=== PATIENT | female | born 1990 | race Caucasian/White ===

== ENCOUNTER 2016-07-07 17:48 | Inpatient (IN) | payer BC ==
--- OUTSIDE RECORDS SUMMARY | 2016-07-07 17:52 | XMS REPORT | Continuity of Care Document ---
:1990 Author Organization [facility] ([facility]) Address [address] [place] [address] Phone [phone] Care Team Providers Name Role Phone Provider, No-Primary Care Primary Care Provider Unavailable Source Comments This disclosure is being made pursuant to the Care Everywhere program, applicable federal and state laws, and may not contain all informaitonavailable regarding this patient.[facility] ([facility]) Active Allergies and Adverse Reactions Not on File Current Medications Not on file Active Problems Not on file Most Recent Encounters Date Type Specialty Providers Description 05/27/2016 Lab Requisition Pathology Lab Services, [facility] Dx: Neoplasm of uncertain behavior of skin Social History Tobacco Use Types Packs/Day Years Used Date Never Assessed Plan of Care Health Maintenance Due Date Last Done Comments Hepatitis B Vaccine (1 of 3 - Primary Series) 1990 HPV Vaccine (1 of 3 - Female/Unknown 3 Dose Series) 2000 Tdap Vaccine 2000 Cervical Cancer Screening 07/29/2007 Lipid Disorder Screening 07/29/2007 MMR Vaccine 07/29/2007 Td Vaccine 07/29/2007 Varicella Vaccine (1 of 2 - Adult - No Evidence of 07/29/2007 Immunity) Influenza Vaccine: Seasonal (#1) 10/11/2015 Results from Last 3 Months DERMATOPATHOLOGY EXAM (05/25/2016 12:48 PM) Component Value Range Case Report Surgical Pathology Case: [id number] Authorizing Provider:Lab Services, [facility] Collected: 05/25/2016 12:48 PM Pathologist: Lupe Ware MD Received:05/27/2016 12:48 PM Specimens: A) - Skin, other, specify, L BREAST B) - Skin, other, specify, L CLAVICULAR SKIN C) - Skin, other, specify, L LATERAL BREAST 4-5 O CLOCK REGION Diagnosis A.Skin, left breast, shave biopsy: Dysplastic compound nevus with moderate atypia. B.Skin, left clavicular, shave biopsy: Compound nevus. C.Skin, left lateral breast 4-5:00 region, shave biopsy: Compound nevus. I have personally reviewed this case and edited the report as necessary. Clinical Information Tissue source/site: A. Skin - shave - L breast. B. Skin - shave - L clavicular skin. C. Skin - shave - L lateral breast 4-5:00 region. Pertinent clinical history and findings: A. 0.3 cm dark macule.B. 0.5 cm brown papule. C. 0.5 cm pedunculated papule with dark center speck. Clinical differential diagnosis: A. Atypical nevus. B. Irritated nevus. C. Imitated acrochordon vs irritated nevus. Gross Description A.Received in formalin, in a container labeled Kamryn Reid, date of , and "L BREAST", is a 0.6 x 0.5 x 0.1 cm barragan shave biopsy.The specimen is inked, bisected and submitted entirelyin A1. D/gustavo B.Received in formalin, in a container labeled Kamryn Reid, date of , and "L CLAVICULAR SKIN ", is a 0.5 x 0.4 x 0.2 cm barragan shave biopsy. The specimen is inked, bisected and submittedentirely in B1. D/gustavo C.Received in formalin, in a container labeled Kamryn Reid, date of , and "L LATERAL BREAST 4-5 O CLOCK REGION", is a 0.5 x 0.4 x 0.2 cm barragan shave biopsy.The specimen is inked, bisected and submitted entirely in C1. D/gustavo Microscopic Description A. Sections show a lentiginous single cell and nested proliferation of mildly atypical melanocytes intraepidermally along the dermal- epidermal junction overlying nested melanocytes within the dermis. Shouldering, bridging, and concentric fibroplasia are seen. The margins appear uninvolved in the plane of sectioning. B. Sections show a nested proliferation of cytologically bland nevomelanocytes at the dermoepidermal junction and in the dermis.The dermal component demonstrates maturation with descent. The margins are involved. C. Sections show a nested proliferation of cytologically bland nevomelanocytes at the dermoepidermal junction and in the dermis.The dermal component demonstrates maturation with descent. The margins are involved. Performed by:Gilles Valentino, DO, R1/tkr Specimen Skin - Skin, other, specify
--- OUTSIDE RECORDS SUMMARY | 2016-07-07 18:03 | XMS REPORT | Continuity of Care Document ---
:1990 Author Organization [facility] ([facility]) [place] [address] Phone [phone] Care Team Providers Name Role Phone Provider, No-Primary Care Primary Care Provider Unavailable Source Comments This disclosure is being made pursuant to the Care Everywhere program, applicable federal and state laws, and may not contain all informaitonavailable regarding this patient.[facility] ([facility]) Active Allergies and Adverse Reactions Not on File Current Medications Not on file Active Problems Not on file Most Recent Encounters Date Type Specialty Providers Description 05/27/2016 Lab Requisition Pathology Lab Services, [facility] Dx: Neoplasm of uncertain behavior of skin [...] Value Range Case Report Surgical Pathology Case: [id number] Authorizing Provider:Lab [facility], [facility] Collected: 05/25/2016 12:48 PM Pathologist: Lupe Ware [...]
[2016-07-07] MEDS ORDERED: ONDANSETRON HCL/PF 2 MG/ML VIAL IV PRN (18:12)
[2016-07-07] MEDS ORDERED: RINGERS SOLUTION,LACTATED 1,000 ML IV ONE (18:12)
[2016-07-07] MEDS ORDERED: DEXTROSE 5%-LACTATED RINGERS 1,000 ML IV PRN (18:12)
[2016-07-07] MEDS ORDERED: LIDOCAINE HCL 50 ML VIAL PERI PRN (18:12)
[2016-07-07] MEDS ORDERED: PENICILLIN G POTASSIUM 5 MILLIONUNT in DEXTROSE 5 % IN WATER 100 ML IV ONE ×2 (19:00)
--- NOTE | 2016-07-07 22:44 | OR ---
Operative Report - Dictated Report Narrative: Spontaneous vaginal delivery of viable female at 2211 on 07/07/2016 in FATOUMATA position with Apgars 8 and 9, weighing 4019 g. Nuchal cord 1-tight, delivered through. Light meconium-stained fluid/small particulate matter with SROM at 2200 Cord clamping delayed approximately 1 minute Placenta delivered complete, intact, with three vessel cord Estimated blood loss: 200 mL Lacerations: None 16 cm segment of cord and cord blood collected for cord blood banking. History for MU Definition: * The number of deliveries resulting in a live the patient experienced prior to current hospitalization * The previous delivery of live twins or any live multiple gestation is considered one live event. *If primagravida or nulliparous is documented select zero for the number of previous live births. Live Events: 1
[2016-07-07] MEDS ORDERED: BISACODYL 10 MG SUPP.RECT RC PRN (22:46)
[2016-07-07] MEDS ORDERED: GLYCERIN/WITCH HAZEL LEAF 40 APPL BOX TP PRN (22:46)
[2016-07-07] MEDS ORDERED: BENZOCAINE/MENTHOL 81 SPRAY CAN TP PRN (22:46)
[2016-07-07] MEDS ORDERED: OXYTOCIN/DEXTROSE 5%-WATER 30 UNITS/500 ML BAG IV ONE (22:46)
[2016-07-07] MEDS ORDERED: oxyCODONE HCL/ACETAMINOPHEN 1 TAB TABLET PO PRN ×2 (22:46)
[2016-07-07] MEDS ORDERED: SENNOSIDES 8.6 MG TABLET PO PRN (22:46)
[2016-07-07] MEDS ORDERED: IBUPROFEN 800 MG TABLET PO PRN (22:46)
[2016-07-07] MEDS ORDERED: HYDROCORTISONE 30 APPL TUBE TP PRN (22:46)
[2016-07-07] MEDS ORDERED: PENICILLIN G POTASSIUM 2.5 MILLIONUNT in DEXTROSE 5 % IN WATER 100 ML IV SCH ×2 (23:00)
[2016-07-08 04:00] VITALS: BP 117/77
[2016-07-08] MEDS ORDERED: DOCUSATE SODIUM 100 MG CAPSULE PO SCH (09:00)
--- NOTE | 2016-07-08 11:05 | PN ---
Subjective - Date and Time Seen Date: 07/08/16 Time: 11:04 Objective - Vitals Vitals: Last Vital Signs Temp 36.7 C 07/08/16 03:26 Pulse 97 07/08/16 03:26 Resp 16 07/08/16 03:26 BP 117/77 07/08/16 03:26 Pulse Ox 98 07/08/16 03:26 Patient denies complaints. Lochia wnl Abdomen - soft, nontender Uterus - firm, at umbilicus - 1 No calf tenderness Impression: day #1 - s/p spontaneous vaginal delivery. Early discharge due to baby being transferred to [facility] for pneumonia. Plan: Routine discharge instructions.
== END 2016-07-08 11:30 | disposition home or self-care (01) | DRG 775 ==
LOC: OBCLINIC 17:48 → OB 17:57
PROVIDERS: ADMIT Obstetrics & Gynecology; ATTEND Obstetrics & Gynecology
PROC: 10E0XZZ Delivery of Products of Conception, External Approach (ICD-10-PCS; principal; 2016-07-07)
PROC: 4A1HXCZ Monitoring of Products of Conception, Cardiac Rate, External Approach (ICD-10-PCS; 2016-07-07)
DX: O69.1XX0 Labor and delivery complicated by cord around neck, with compression, not applicable or unspecified (principal); O77.0 Labor and delivery complicated by meconium in amniotic fluid; O99.824 Streptococcus B carrier state complicating childbirth; Z3A.40 40 weeks gestation of pregnancy; Z37.0 Single live birth